=== PATIENT | male | born 1965 | race Caucasian/White ===

== ENCOUNTER 2022-06-21 11:21 | Emergency (ER) | payer OTHER, SELFPAY ==
[2022-06-21 11:39] VITALS: BP 138/98; PULSE 73; RESP 16; TEMP 36.7; O2SAT 98
[2022-06-21 11:40] VITALS: BP 137/93; PULSE 67; RESP 18; TEMP 36.9; O2SAT 98
--- NOTE | 2022-06-21 11:41 | PC.NURSE ---
COVID PCR sent to lab
--- NOTE | 2022-06-21 11:44 | ED.NAVMDI ---
HPI - Nausea/Vomiting/Diarrhea General Chief complaint: Nausea/Vomiting/Diarrhea Stated complaint: abd cramping, nausea, vomitting, diarrhea Time Seen by Provider: 06/21/22 11:44 Source: patient Mode of arrival: ambulatory History of Present Illness HPI Narrative: 57-year-old male with no significant past medical history presents to the ER with a one-week history of -- nausea/vomiting. This has resolved over the past 2 3 days -- multiple episodes of large volume diarrhea. -- Questionable blood in his stool. The patient has not had any antibiotics in the recent past. Never had a colonoscopy. Patient does not have any fever or abdominal pain. MD elicited complaint: nausea, vomiting and diarrhea Pertinent past history: anorexia Onset (ago): week(s) ( Started 1 week ago) Description of diarrhea: blood and watery Associated nausea: Yes Associated abdominal pain: No Location of pain: none Associated symptoms: denies other symptoms Related Data Home Medications Medication Instructions Recorded Confirmed No Home Medications 06/21/22 06/21/22 Allergies Allergy/AdvReac Type Severity Reaction Status Date / Time No Known Allergies Allergy Verified 06/21/22 11:44 Review of Systems Review of Systems: All systems reviewed & are unremarkable except as noted in HPI and below Constitutional: Constitutional: Reports as per HPI and Reports no additional constitutional complaints Eyes: Eyes: Reports as per HPI and Reports no additional eye complaints ENT: Reports system reviewed and no additional complaints, except as documented and Reports as per HPI Cardiovascular: Cardiovascular: Reports as per HPI and Reports no additional cardiovascular complaints Respiratory: Respiratory: Reports as per HPI and Reports no additional respiratory complaints Gastrointestinal: Gastrointestinal: Reports as per HPI, Reports no additional gastrointestinal complaints, Reports diarrhea, Reports nausea and Reports vomiting Genitourinary: Genitourinary: Reports no additional male genitourinary complaints and Reports as per HPI Musculoskeletal: Musculoskeletal: Reports no additional musculoskeletal complaints and Reports as per HPI Integumentary/Breasts: Skin/Breast: Reports system reviewed and no additional complaints, except as docu and Reports as per HPI Neurologic: Reports system reviewed and no additional complaints, except as documented and Reports as per HPI Psychiatric: Psychiatric: Reports no additional psychiatric complaints and Reports as per HPI Endocrine: Endocrine: Reports no additional endocrine complaints and Reports as per HPI Hematologic/Lymphatic: Hematologic/Lymphatic: Reports no additional hematologic/lymphatic complaints and Reports as per HPI Allergic/Immunologic: Allergic/Immunologic: Reports no additional allergic/immunologic complaints and Reports as per HPI Exam Const: General: healthy appearing and no acute distress Orientation/consciousness: patient oriented x3 Limitations: no limitations HENMT: Head: normal to inspection Ears: external ears normal Face and sinus: normal facial exam Mouth: Yes Normal oral and palatal mucosa present Throat: posterior oropharynx normal Eyes: Conjunctivae: conjunctivae normal Cornea: corneas normal Pupils: Equal, round and reactive pupils present EOM: EOMs intact bilaterally Direct Ophthalmoscopy: no photophobia Neck: Neck: normal visual inspection, no lymphadenopathy and no meningeal signs Chest: Chest palpation & inspection: normal inspection of the chest Resp: Effort & Inspection: normal respiratory effort Auscultation: clear to auscultation bilaterally Cardio: Rate: regular rate Rhythm: regular rhythm GI: GI Palp: Yes Soft to palpation Other: no tenderness/ rigidity /rebound : General: Yes no CVA tenderness Back/Spine/Pelvis: Back: no CVA tenderness Skin: General skin exam: normal color Rashes: no rashes Wounds: no wounds Neuro: General: patien
[2022-06-21 12:00] LABS: Basophils Absolute Auto 0.01 K/mm3 (0.00-0.10); Basophils Percent Auto 0.1 % (0.0-1.0); Eosinophils Absolute Auto 0.11 K/mm3 (0.02-0.50); Eosinophils Percent Auto 1.5 % (1.0-6.0); Hematocrit 38.8 % (40.0-54.0); Hemoglobin 13.4 g/dL (14.0-18.0); Immature Granulocyte Absolute 0.03 K/mm3 (0.00-0.00); Immature Granulocyte Percent A 0.4 % (0.0-0.0); Lymphocytes Absolute Auto 1.52 K/mm3 (1.10-4.50); Lymphocytes Percent Auto 20.9 % (18.0-42.0); Mean Corpuscular HGB Conc 34.5 g/dL (32.0-36.0); Mean Corpuscular Hemoglobin 30.5 pg (27.0-31.0); Mean Corpuscular Volume 88.4 fL (78.0-102.0); Mean Platelet Volume 9.3 fl (8.7-11.0); Monocytes Absolute Auto 0.95 K/mm3 (0.10-0.90); Monocytes Percent Auto 13.1 % (2.0-11.0); Neutrophils Absolute Auto 4.6 K/mm3 (1.7-7.2); Platelet Count Result 322 K/mm3 (150-420); Red Blood Count 4.39 M/mm3 (4.70-6.10); Red Cell Distribution Width 11.9 % (11.6-14.4); White Blood Count 7.3 K/mm3 (4.8-10.8)
[2022-06-21 12:01] LABS: Appearance Urine Clear (Clear); Bilirubin Urine 1+ (Negative); Color Urine Dark Yellow (Yellow); Glucose Urine UA Negative (Negative); Ketones Urine Trace (Negative); Leukocyte Esterase Ur Negative (Negative); Nitrate Urine Negative (Negative); Protein Urine Trace (Negative); Specific Grav Ur >= 1.030 (1.010-1.020); Urobilinogen Urine 0.2 mg/dL (0.2-1.0)
[2022-06-21 12:07] LABS: Add Urine Microscopic? YES; Bacteria Urine Trace /hpf; Blood Urine Trace (Negative); Mucus Urine Few /lpf; RBC Urine 0-2 /hpf (0-2); Squamous Epithelial Cell Urine Occasional /hpf (Few); WBC Urine 0-3 /hpf (0-3)
[2022-06-21 12:19] LABS: Alanine Aminotransferase 24 U/L (16-63); Albumin Level 3.2 g/dL (3.4-5.0); Alkaline Phosphatase 55 U/L (46-116); Anion Gap 12 mmol/L (8-16); Aspartate Amino Transferase 15 U/L (15-37); Bilirubin,Total 0.9 mg/dL (0.00-1.00); Blood Urea Nitrogen 13 mg/dL (7-18); Calcium 8.7 mg/dL (8.5-10.1); Carbon Dioxide 24 mmol/L (21-32); Chloride 103 mmol/L (98-108); Estimated Glomerular Filt Rate 59; Glucose 115 mg/dL (70-99); Lactic Acid Reflex 0.7 mmol/L (0.4-2.0); Lipase 65 U/L (73-393); Osmolality Calculated 289 mOsm/kg (285-295); Potassium 3.9 mmol/L (3.5-5.1); Sodium 139 mmol/L (136-145); Total Protein 6.9 g/dL (6.4-8.2); Troponin I 6.3 ng/L (0.00-60.4)
[2022-06-21 12:33] LABS: Influenza A QL RT-PCR Negative (Negative); Influenza B QL RT-PCR Negative (Negative); SARS-CoV-2 RNA PCR Negative (Negative)
[2022-06-21 12:55] VITALS: BP 117/89; PULSE 68; RESP 17; TEMP 36.7; O2SAT 97
== END 2022-06-21 13:01 | disposition home or self-care (01) ==
PROVIDERS: Emergency Provider Internal Medicine Critical Care Medicine
DX: K52.9 Noninfective gastroenteritis and colitis, unspecified (principal); E86.0 Dehydration; Z20.822 Contact with and (suspected) exposure to COVID-19
CPT/HCPCS: 36415; 80053; 81001; 83605; 83690; 84484; 85025; 87502; 99284; C9803; U0003; U0005

== ENCOUNTER 2022-08-01 11:41 | Outpatient (CLI) | payer OTHER, SELFPAY ==
[2022-08-01 12:05] LABS: Basophils Percent Auto 0.2 % (0.2-1.2); Eosinophils Absolute Auto 0.2 K/mm3 (0-0.3); Eosinophils Percent Auto 2.7 % (0-4.4); Hematocrit 40.4 % (42.0-52.0); Hemoglobin 13.6 g/dL (14.0-18.0); Immature Granulocyte Absolute 0.03 K/mm3 (0.00-0.031); Immature Granulocyte Percent A 0.4 % (0-0.5); Lymphocytes Absolute Auto 2.76 K/mm3 (0.9-3.2); Lymphocytes Percent Auto 33.7 % (18.3-44.2); Mean Corpuscular HGB Conc 33.7 g/dl (32-36); Mean Corpuscular Hemoglobin 29.8 pg (26-34); Mean Corpuscular Volume 88.4 fl (80-100); Mean Platelet Volume 9.3 fl (7.4-10.4); Monocytes Absolute Auto 0.7 K/mm3 (0.1-0.6); Monocytes Percent Auto 8.1 % (2.6-8.5); Neutrophils Absolute Auto 4.5 K/mm3 (1.3-6.7); Neutrophils Percent Auto 54.9 % (45.5-73.1); Platelet Count Result 357 k/mm3 (150-375); Red Blood Count 4.57 M/mm3 (4.6-6.20); Red Cell Distribution Width 12.6 % (11.5-14.5); White Blood Count 8.2 K/mm3 (4.5-10.0)
[2022-08-01 12:31] LABS: Alanine Aminotransferase 33 U/L (6-50); Albumin Level 4.5 g/dL (3.5-5.1); Alkaline Phosphatase 66 U/L (38-126); Anion Gap 10 mmol/L (8-16); Aspartate Amino Transferase 35 U/L (17-59); Blood Urea Nitrogen 13 mg/dL (9-20); Calcium 9.4 mg/dL (8.4-10.2); Carbon Dioxide 27 mmol/L (22-30); Chloride 102 mmol/L (98-107); Cholesterol 181 mg/dL (0-200); Estimated Glomerular Filt Rate > 60; Glucose 103 mg/dL (65-110); HDL Direct 34 mg/dL; Potassium 4.6 mmol/L (3.4-5.0); Sodium 139 mmol/L (137-145); Triglycerides 226 mg/dL (<150)
[2022-08-01 12:42] LABS: LDL Cholesterol Direct 79 mg/dL
[2022-08-01 13:02] LABS: Prostate Specific Antigen 7.1 ng/mL (< OR = 4.0)
== END 2022-08-01 11:42 | disposition home or self-care (01) ==
LOC: ANHLAB 11:42
PROVIDERS: PCP Emergency Medicine; Visit Provider Emergency Medicine
DX: Z00.00 Encounter for general adult medical examination without abnormal findings (principal); Z12.5 Encounter for screening for malignant neoplasm of prostate
CPT/HCPCS: 36415; 80053; 80061; 84153; 85025; G0103

== ENCOUNTER 2022-08-07 15:50 | Outpatient (CLI) | payer OTHER, SELFPAY ==
[2022-08-12 22:13] LABS: PSA, Free 0.71 ng/mL; PSA, Total 6.2 ng/mL (<=4.0); Percent Free Prostate Spec Ag 11 % (>25)
== END 2022-08-07 15:51 | disposition home or self-care (01) ==
LOC: ANHLAB 15:54
PROVIDERS: PCP Emergency Medicine; Visit Provider Emergency Medicine
DX: R97.20 Elevated prostate specific antigen [PSA] (principal)
CPT/HCPCS: 36415; 84153; 84154

== ENCOUNTER 2022-10-20 07:32 | Day surgery (SDC) | payer OTHER, SELFPAY ==
[2022-07-30 11:40] VITALS: BMI 26.2
[2022-10-13 10:36] VITALS: BMI 26.9
--- NOTE | 2022-10-17 14:50 | PM.HPGS ---
History of Present Illness History of Present Illness Consent: Risks, benefits, and alternatives have been discussed and questions answered. Patient agrees to proceed with procedure. Chief complaint: Gerd, Diarrhea, Anemia, Hematemesis Narrative: Davide Gunter is a 57 year old male Who came down with severe nausea vomiting, diarrhea, and abdominal pain in June. There was also fever initially. His symptoms have gradually improved. He is no longer vomiting. He is mildly anemic with hemoglobin 13.6. He is due for colon cancer screening. Review of Systems Review of Systems: All systems reviewed & are unremarkable except as noted in HPI and below PMFSH Social History Social History Social History: Caffeine-coffee/tea Smoking status: Former smoker Second hand tobacco smoke exposure: No Alcohol intake: current Alcohol use details: social beer every 3-4 day Substance use: never Living arrangements: with family Gender identity (if verbalized by the patient): Male Spiritual care concerns: No Meds Home Medications and Allergies Home Medications Medication Instructions Recorded Confirmed Type sildenafil 50 mg tablet (Viagra) 50 mg PO DAILY PRN sexual activity 08/14/22 10/20/22 Rx #6 tabs Allergies Allergy/AdvReac Type Severity Reaction Status Date / Time No Known Allergies Allergy Verified 10/20/22 08:42 Exam Const: General: alert Orientation/consciousness: patient oriented x3 Resp: Auscultation: clear to auscultation bilaterally Cardio: Rhythm: regular rhythm GI: GI Palp: Yes Soft to palpation and No Tenderness to palpation present (GI) Neuro: General: patient oriented x3 Assessment and Plan Assessment and plan (1) Nausea and vomiting: Code(s): R11.2 - Nausea with vomiting, unspecified Status: Acute Assessment and Plan: EGD with possible biopsy or dilatation or cautery. (2) Colon cancer screening: Code(s): Z12.11 - Encounter for screening for malignant neoplasm of colon Status: Acute Assessment and Plan: Colonoscopy with possible biopsy or polypectomy or cautery or injection of substances.
--- NOTE | 2022-10-20 07:02 | WPDANESEPPF ---
Anes - Initial Pre Proc Eval Procedure: Operation Date: 10/20/22 10:00 Proposed Procedures p Esophagogastroduodenoscopy - Yasir Turk MD s Diagnostic Colonoscopy - Yasir Turk MD Date/Time: 10/20/22 07:02 Surgeon: Yasir Turk MD Pre Op Diagnosis: Gerd, Diarrhea, Anemia, Hematemesis Patient Data Age: 57 Gender: M Height: 1.85 m Weight: 92.5 kg Allergies Allergy/AdvReac Type Severity Reaction Status Date / Time No Known Allergies Allergy Verified 10/20/22 08:42 Home Medications Medication Instructions Recorded Confirmed Type sildenafil 50 mg tablet (Viagra) 50 mg PO DAILY PRN sexual activity 08/14/22 10/20/22 Rx #6 tabs pantoprazole 40 mg tablet,delayed 40 mg PO QAM #30 tabs 10/20/22 Rx release Patient hx anesthesia problems: none Family hx anesthesia problems: none Results Review: All pre-operative results and documents have been reviewed as part of the pre-operative evaluation. [facility] Social History Social History Social History: Caffeine-coffee/tea Smoking status: Former smoker Second hand tobacco smoke exposure: No Alcohol intake: current Alcohol use details: social beer every 3-4 day Substance use: never Living arrangements: with family Gender identity (if verbalized by the patient): Male Spiritual care concerns: No Anes - Eval Final PreProcedure Day of Procedure 10/20/22 07:02 Patient weight: overweight Heart: regular rate and rhythm Lungs: clear to auscultation Airway: Mallampati scale class II Neurological: alert and oriented Last oral intake: >/= 8 hours ASA classification: I Emergent: no Anesthetic plan: proceed Anesthesia type and monitoring: general GIVS and standard monitoring Results Review: All pre-operative results and documents have been reviewed as part of the pre-operative evaluation. Informed Consent: The patient's anesthetic plan and its attendant risks and benefits were discussed with the patient/family/POA. Questions were solicited and answers provided to the satisfaction of the patient/family/POA.
[2022-10-20 08:40] VITALS: BP 113/93; PULSE 65; RESP 16; TEMP 36.6; O2SAT 98
[2022-10-20] MEDS: LACTATED RINGERS 1,000 ML 150 ML IV CONT (09:04)
[2022-10-20 10:08] VITALS: BP 95/74; PULSE 60; RESP 18; O2SAT 97
[2022-10-20 10:18] VITALS: BP 105/78; PULSE 59; RESP 18; O2SAT 98
[2022-10-20 10:28] VITALS: BP 108/77; PULSE 57; RESP 18; O2SAT 98
--- NOTE | 2022-10-20 11:40 | WPDANESPN ---
Anes - Prog Note Post-Op Date/Time: 10/20/22 11:40 Cardiovascular status: normal Respiratory status: normal Airway patency: baseline Mental status: baseline Post-Op hydration status: normal Vital Signs: Last Vital Signs Temp 36.6 C 10/20/22 08:40 Pulse 57 L 10/20/22 10:28 Resp 18 10/20/22 10:28 BP 108/77 10/20/22 10:28 Pulse Ox 98 10/20/22 10:28 O2 Del Method Room Air 10/20/22 10:28 Pain Score (VAS): 0 I/O: Intake & Output 10/19/22 10/20/22 10/20/22 23:59 07:59 15:59 Intake Total 500 Balance 500 Post-procedural complaints: none Patient Feedback: Patient satisfied with anesthetic care. Other Findings: Patient vital signs back to baseline. Patient denies nausea and vomiting. Patient's pain under control. Patient OK for discharge.
== END 2022-10-20 10:53 | disposition home or self-care (01) ==
PROVIDERS: Visit Provider Internal Medicine Gastroenterology
PROC: 0DJ08ZZ Inspection of Upper Intestinal Tract, Via Natural or Artificial Opening Endoscopic (ICD-10-PCS; CPT 43235; principal; 2022-10-20 10:00)
PROC: 0DJD8ZZ Inspection of Lower Intestinal Tract, Via Natural or Artificial Opening Endoscopic (ICD-10-PCS; CPT 45378; 2022-10-20 10:00)
DX: Z12.11 Encounter for screening for malignant neoplasm of colon (principal)
CPT/HCPCS: 45385; 43239

== ENCOUNTER 2022-10-20 08:00 | Outpatient (NON) | payer OTHER, SELFPAY | END 2022-10-20 08:01 | disposition home or self-care (01) | LOC: ANHLAB 10-21 07:57 | PROVIDERS: PCP Emergency Medicine; Visit Provider Internal Medicine Gastroenterology | DX: Z12.11 Encounter for screening for malignant neoplasm of colon (principal); K22.89 Other specified disease of esophagus; D12.5 Benign neoplasm of sigmoid colon | CPT/HCPCS: 88305; 88312 ==

== ENCOUNTER 2024-03-04 09:58 | Inpatient (IN) | payer OTHER, SELFPAY ==
[2024-03-04] VITALS (17 sets, daily range): BP systolic 107–131; BP diastolic 70–84; PULSE 65–89; RESP 12–24; TEMP 36.4; O2SAT 94–100
--- NOTE | ~2024-03-04 | CT_ITS ---
EXAMINATION: CT brain wo con DATE: 03/04/2024 10:29 INDICATION: Fall and seizure TECHNIQUE: Computed tomography (CT) of the head was performed without intravenous contrast. Sagittal and coronal reconstructions were performed. The mA was adjusted according to patient size. Iterative reconstruction technique was employed. The dose-length product was 1135.00 mGy-cm. COMPARISON: None FINDINGS: No fracture. 1.9 x 1.8 x 1.4 cm hypodense lesion with some surrounding likely vasogenic edema at the anterior inferior right frontal lobe at the floor of the anterior cranial fossa. Additional vasogenic edema surrounding a more subtle 2.3 x 1.7 x 1.7 cm peripherally higher attenuation centrally low att enuation lesion in the posterior right frontal lobe along the cephalad margin of the sylvian fissure. There are at least 4 additional subcentimeter hypoattenuation lesions in the right frontal, left tem poral and left parietal lobes. No acute infarction or abnormal extra axial fluid collection. Ventricl es are normal and symmetric. No mass/mass effect. The orbits, paranasal sinuses and mastoid air cells are normal. IMPRESSION: 1. Vasogenic edema associated with multiple brain lesions with distribution and appearance favoring m etastatic disease or septic emboli in the appropriate clinical setting over scattered foci of intrapa renchymal hemorrhage. Recommend contrast-enhanced MRI or CT for further evaluation. Dr. Hagan disc ussed these findings with Dr. Zamora at 10:42 AM. Reviewed, dictated and finalized at location A. IMPRESSION: 1. Vasogenic edema associated with multiple brain lesions with distribution and appearance favoring metastatic disease or septic emboli in the appropriate cli nical setting over scattered foci of intraparenchymal hemorrhage. Recommend con trast-enhanced MRI or CT for further evaluation. Dr. Hagan discussed these f indings with Dr. Zamora at 10:42 AM.
--- NOTE | ~2024-03-04 | CT_ITS ---
EXAMINATION: CT cervical spine wo con DATE: 03/04/2024 10:29 INDICATION: Seizure and fall with head injury TECHNIQUE: Computed tomography (CT) of the cervical spine was performed without intravenous contrast. Automated exposure control and iterative reconstruction technique were employed. The dose-length pro duct was 541.57 mGy-cm. COMPARISON: None FINDINGS: Alignment is normal. Vertebral body heights are normal. No fracture. Disc heights are normal. There a re disc bulges resulting in mild central canal stenosis at C3-C4 and C5-C6. Moderate uncovertebral os teoarthritis on the left at C3-C4 with mild osteoarthritis at the remaining cervical uncovertebral helena ints. There is multilevel moderate to severe bilateral cervical facet osteoarthritis. This contribute s to multilevel bilateral mild neural foraminal stenosis. There multiple subcentimeter pulmonary nodu les with random distribution in the visualized upper lungs consistent with metastatic disease. Also s uspicious for metastatic disease are a few enlarged right paratracheal lymph nodes the largest measur ing 1.5 x 1.5 cm. Cervical soft tissues are unremarkable. IMPRESSION: 1. Mild cervical spondylosis with no acute osseous abnormality. 2. Multiple subcentimeter pulmonary nodules in the visualized upper lungs along with right paratrache al lymphadenopathy suspicious for metastatic disease. Reviewed, dictated and finalized at location A. IMPRESSION: 1. Mild cervical spondylosis with no acute osseous abnormality. 2. Multiple subcentimeter pulmonary nodules in the visualized upper lungs along with right paratracheal lymphadenopathy suspicious for metastatic disease.
--- NOTE | ~2024-03-04 | CT_ITS ---
EXAMINATION: CT thoracic lumbar wo con DATE: 03/04/2024 12:17 INDICATION: meta . TECHNIQUE: Computed tomography (CT) of the thoracic and lumbar spine was performed without intravenou s contrast. The dose-length product was 2156.89 mGy-cm. COMPARISON: None FINDINGS: THORACIC SPINE: 12 rib-bearing thoracic vertebral bodies. Multiple lytic lesions involving the T1, T5, T9 and T10 [place] tebral bodies. Severe burst fracture at T5, with up to 9 mm retropulsion/posterior tumor extension ca using moderate central canal stenosis. Mild burst fracture at T9, with 2 mm retropulsion. Mild anteri or wedge deformity at T12, presumably chronic or physiologic. Vertebral body alignment intact. Remain ing vertebral body heights preserved. Mild multilevel degenerative disc disease. No traumatic malalig nment or fracture. Innumerable pulmonary nodules. More confluent subsegmental dependent consolidation bilaterally. Small hiatal hernia. Mediastinal and bilateral lymphadenopathy.. LUMBAR SPINE: 5 nonrib-bearing lumbar-type vertebral bodies. Rudimentary disc at S1-2. Pedicles intact. Normal vert ebral body alignment. Mild anterior wedge deformity at L1 and L4, presumably chronic or physiologic. Mild multilevel disc degenerative disc disease. Mild lower lumbar facet sclerosis arthropathy. Lytic lesion in the spinous processes of L1 L5 and S1. Lytic lesion in the left posterior 12th rib IMPRESSION: Bilateral dependent atelectasis/consolidation. Pulmonary, mediastinal/hilar, and axial spine metastatic disease. Severe burst fracture at T5 with 9 mm posterior retropulsion/tumor extension causing moderate central canal stenosis. Mild burst fracture at T9, with minimal 2 mm retropulsion of osseous fragments. Reviewed, dictated and finalized at location K. IMPRESSION: Bilateral dependent atelectasis/consolidation. Pulmonary, mediastinal/hilar, and axial spine metastatic disease. Severe burst fracture at T5 with 9 mm posterior retropulsion/tumor extension ca using moderate central canal stenosis. Mild burst fracture at T9, with minimal 2 mm retropulsion of osseous fragments.
--- NOTE | ~2024-03-04 | CT_ITS ---
EXAMINATION: CTA brain DATE: 03/04/2024 11:24 INDICATION: Seizure TECHNIQUE: Computed tomographic angiography (CTA) of the head was performed without and with 100 mL O mnipaque-350 intravenous contrast. Volume-rendered and maximum intensity projection 3D reconstruction s of the intracranial arteries were created by the technologist on a separate workstation. Automated exposure control and iterative reconstruction technique were employed. The dose-length product was mG y-cm. COMPARISON: None. FINDINGS: There is no hemodynamically significant stenosis in the vertebral, basilar and internal carotid arter ies. Vertebral arteries are codominant. There are no aneurysms identified. Both A1 and P1 segments a re patent. The left A1 segment is small with larger caliber patent anterior to indicating artery. Cer ebral arterial arborization appears symmetric. There are at least 12 peripherally enhancing lesions s cattered throughout the brain to the lab largest measuring 2.0 cm in the right parietal lobe. There i s an additional 2.0 cm lesion along the anteroinferior right frontal lobe which is slightly hyperinte nse to the surrounding brain but with similar density as on the prior noncontrast CT and this could r epresent either an additional metastatic lesion, small region of intraparenchymal hemorrhage or combi nation thereof. IMPRESSION: 1. At least 11 peripheral enhancing lesions scattered throughout the brain consistent with metastatic disease. 2. 2.0 cm lesion at the anteroinferior right frontal lobe but without definitive enhancement coronal for either additional metastatic lesion, intraparenchymal hemorrhage or combination thereof. 3. No aneurysm or hemodynamically significant stenosis. Reviewed, dictated and finalized at location A. IMPRESSION: 1. At least 11 peripheral enhancing lesions scattered throughout the brain cons istent with metastatic disease. 2. 2.0 cm lesion at the anteroinferior right frontal lobe but without definitiv e enhancement coronal for either additional metastatic lesion, intraparenchymal hemorrhage or combination thereof. 3. No aneurysm or hemodynamically significant stenosis.
--- NOTE | 2024-03-04 10:07 | ECG_ITS ---
SEE SCANNED COPY FOR CONFIRMED REPORT MTDD
--- NOTE | 2024-03-04 10:15 | PC.NURSE ---
pt taken to CT, unable to obtain EKG
[2024-03-04] MEDS: levETIRAcetam 1000MG/NACL100ML 1,000 MG/100 ML BAG 400 MG IVPB (10:57)
[2024-03-04 10:59] LABS: Basophils Percent Auto 0.3 % (0.2-1.2); Eosinophils Percent Auto 0.3 % (0-4.4); Hematocrit 38.3 % (42.0-52.0); Hemoglobin 13.1 g/dL (14.0-18.0); Immature Granulocyte Absolute 0.13 K/mm3 (0.00-0.031); Immature Granulocyte Percent A 0.8 % (0-0.5); Lymphocytes Absolute Auto 0.71 K/mm3 (0.9-3.2); Lymphocytes Percent Auto 4.6 % (18.3-44.2); Mean Corpuscular HGB Conc 34.2 g/dl (32-36); Mean Corpuscular Volume 87.6 fl (80-100); Mean Platelet Volume 9.5 fl (7.4-10.4); Monocytes Absolute Auto 0.9 K/mm3 (0.1-0.6); Monocytes Percent Auto 5.5 % (2.6-8.5); Neutrophils Absolute Auto 13.8 K/mm3 (1.3-6.7); Neutrophils Percent Auto 88.5 % (45.5-73.1); Platelet Count Result 365 k/mm3 (150-375); Red Blood Count 4.37 M/mm3 (4.6-6.20); Red Cell Distribution Width 11.7 % (11.5-14.5); White Blood Count 15.6 K/mm3 (4.5-10.0)
[2024-03-04 11:06] LABS: Alanine Aminotransferase 19 U/L (6-50); Albumin Level 4.2 g/dL (3.5-5.1); Alkaline Phosphatase 86 U/L (38-126); Anion Gap 8 mmol/L (4-12); Aspartate Amino Transferase 36 U/L (17-59); Bilirubin,Total 1.2 mg/dL (0.2-1.3); Blood Urea Nitrogen 18 mg/dL (9-20); Calcium 9.4 mg/dL (8.4-10.2); Carbon Dioxide 21 mmol/L (22-30); Chloride 106 mmol/L (98-107); Estimated CRCL calculation 68 ml/min; Estimated Glomerular Filt Rate > 60; Glucose 210 mg/dL (65-110); Sodium 135 mmol/L (137-145)
[2024-03-04 11:10] LABS: Ethanol < 10 mg/dL (<10); INR 1.1; Prothrombin Time 14.5 Seconds (11.1-14.7)
[2024-03-04] MEDS: HYDROmorphone HCL INJ (*CRX) 1 MG/ML SYR IV PUSH (11:57)
[2024-03-04] MEDS: ONDANSETRON INJ 4 MG/2 ML VIAL IV PUSH (11:57)
--- NOTE | 2024-03-04 12:25 | PC.NURSE ---
pt declines straight cath for urine sample. provided pt a urinal and educated to use call light with any urge to urinate.
[2024-03-04] MEDS: dexAMETHasone SOD PHOS INJ 10 MG/ML 1 ML VIAL IV PUSH (12:55)
--- NOTE | 2024-03-04 13:04 | PC.NURSE ---
[facility] transfer center called @[phone] to get pt report and update. they state they will call back with further updates on admission and transfer
[2024-03-04] MEDS: HYDROmorphone HCL INJ (*CRX) 1 MG/ML SYR 0.5 MG IV PUSH ×4 (14:15→23:09)
--- NOTE | 2024-03-04 14:23 | ECG_ITS ---
SEE SCANNED COPY FOR CONFIRMED REPORT MTDD
[2024-03-04] MEDS: LORazepam INJ (*CRX) 2 MG/ML VIAL 0.5 MG IV PUSH (15:04)
--- NOTE | 2024-03-04 15:07 | ED.SEIZURE ---
HPI - Seizure General Chief Complaint: Seizure <Kain Zamora MD - Last Filed: 03/04/24 15:38> Stated Complaint: back pain s/p seizure <Kain Zamora MD - Last Filed: 03/04/24 15:38> Time Seen by Provider: 03/04/24 09:59 <Kain Zamora MD - Last Filed: 03/04/24 15:38> Source: EMS <Kain Zamora MD - Last Filed: 03/04/24 15:38> Mode of arrival: EMS <Kain Zamora MD - Last Filed: 03/04/24 15:38> Limitations: no limitations <Kain Zamora MD - Last Filed: 03/04/24 15:38> History of Present Illness HPI Narrative: 58-year-old with metastatic of disease the primary from lung and melanoma was brought in from home with complaints of having seizure. Patient states that he was laying on the couch fell off the couch after having a seizure. Upon arrival patient complains of head and back pain. No history of fever or chills. He is not on any anti epileptic medication. Patient's was bedside stated that his schedule for immunotherapy next week at [facility] She also stated that he has metastatic lesions in his thoracic lumbar and sacral vertebra <Kain Zamora MD - Last Filed: 03/04/24 15:38> MD complaint: seizure <Kain Zamora MD - Last Filed: 03/04/24 15:38> Onset (ago): minute(s) (30) <Kain Zamora MD - Last Filed: 03/04/24 15:38> Description of Episode: post-event confusion <Kain Zamora MD - Last Filed: 03/04/24 15:38> Witnessed: Yes - by Other (his ) <Kain Zamora MD - Last Filed: 03/04/24 15:38> Trauma: No <Kain Zamora MD - Last Filed: 03/04/24 15:38> Seizure History: No <Kain Zamora MD - Last Filed: 03/04/24 15:38> Place: home <Kain Zamora MD - Last Filed: 03/04/24 15:38> Possible Precipitating Event: other (Metastatic disease to the brain) <Kain Zamora MD - Last Filed: 03/04/24 15:38> Treatments prior to arrival: none <Kain Zamora MD - Last Filed: 03/04/24 15:38> Related Data Home Medications: Home Medications Medication Instructions Recorded Confirmed oxycodone 5 mg tablet 10 mg PO Q4H PRN Pain 03/05/24 03/05/24 <Kain Zamora MD - Last Filed: 03/04/24 15:38> Allergies/Adverse Reactions: Allergies Allergy/AdvReac Type Severity Reaction Status Date / Time No Known Allergies Allergy Verified 03/04/24 12:56 <Kain Zamora MD - Last Filed: 03/04/24 15:38> Review of Systems Review of Systems: All systems reviewed & are unremarkable except as noted in HPI and below <Kain Zamora MD - Last Filed: 03/04/24 15:38> Constitutional: Constitutional: Reports no additional constitutional complaints <Kain Zamora MD - Last Filed: 03/04/24 15:38> Eyes: Eyes: Reports no additional eye complaints <Kain Zamora MD - Last Filed: 03/04/24 15:38> ENT: Reports system reviewed and no additional complaints, except as documented <Kain Zamora MD - Last Filed: 03/04/24 15:38> Cardiovascular: Cardiovascular: Reports no additional cardiovascular complaints <Kain Zamora MD - Last Filed: 03/04/24 15:38> Respiratory: Respiratory: Reports no additional respiratory complaints <Kain Zamora MD - Last Filed: 03/04/24 15:38> Gastrointestinal: Gastrointestinal: Reports no additional gastrointestinal complaints <Kain Zamora MD - Last Filed: 03/04/24 15:38> Musculoskeletal: Musculoskeletal: Reports back pain <Kain Zamora MD - Last Filed: 03/04/24 15:38> Neurologic: Reports as per HPI <Kain Zamora MD - Last Filed: 03/04/24 15:38> Psychiatric: Psychiatric: Reports no additional psychiatric complaints <Kain Zamora MD - Last Filed: 03/04/24 15:38> PMFSH Social History Social History: Social History Social History: Caffeine-coffee/tea Smoking status: Never smoker Second hand tobacco smoke exposure: No Alcohol intake: never Alcohol use details: social bee
--- NOTE | 2024-03-04 17:51 | PC.NURSE ---
only prescription medication pt states they are prescribed is Oxycodone 20mg Q4 hours. no other prescriptions per pt and pt
--- NOTE | 2024-03-04 17:52 | PC.NURSE ---
ordered pt dinner meal tray @[phone]
[2024-03-04] MEDS: LIDOCAINE 5% PATCH 1 PATCH TRANSDERM (21:19)
--- NOTE | 2024-03-04 21:42 | PC.NURSE ---
Fuad from [facility] transfer center called @[phone] to get pt update but still does not have a bed assignment at this time
--- NOTE | 2024-03-04 22:57 | PC.NURSE ---
care and report given to RISHABH Keane. all questions answered
[2024-03-05] VITALS (46 sets, daily range): BP systolic 108–128; BP diastolic 65–83; PULSE 54–79; RESP 12–31; TEMP 36.1–36.8; O2SAT 87–100; BMI 26.0
[2024-03-05] MEDS: HYDROmorphone HCL INJ (*CRX) 1 MG/ML SYR 0.5 MG IV PUSH ×6 (02:04→20:46)
--- NOTE | 2024-03-05 07:31 | PC.NURSE ---
Addendum entered by Giuliana Shore 03/05/24 07:36: @[id number] Original Note: Called and spoke with transfer center. Patient remains on wait list with a few patients ahead of him, he could be waiting a few days.
--- NOTE | 2024-03-05 08:57 | ADMGEN ---
This patient, Davide Gunter, was admitted to IMU Room 207-01. Patient/family oriented to hospital policies and general routines including ID bracelet, bed and alarms, visiting hours, pain management, procedures, bathroom and other care routines, personal items, smoking policy, room service/diet, and visiting hours. Information on how to activate the Rapid Response Team has been discussed. Patient/Family are encouraged to report perceived risks to care and to ask questions if they do not understand what they are told or what they should do.
[2024-03-05] MEDS: levETIRAcetam 500 MG TABLET PO ×2 (10:26→20:38)
[2024-03-05] MEDS: dexAMETHasone SOD PHOS INJ 4 MG/ML VIAL IV PUSH ×2 (13:15→17:29)
--- NOTE | 2024-03-05 15:11 | PM.IMHP ---
H&P: HPI History of Present Illness Date/Time: 03/05/24 15:11 Chief Complaint: Seizure Narrative: 58-year-old male with metastatic melanoma brought in from home with complaint of having seizures. Patient stated that he was lying on the couch from a fell off after he had a seizure. He has no re-collection of the event. No fever chills not on any anti epileptic medication. He was scheduled to get immunotherapy next week at [facility]. He has noted metastatic lesion in his thoracic lumbar and sacral vertebra. Was given IV Keppra and CT head was performed. A head CT showed vasogenic edema associated with multiple brain lesions with distribution and appearance favoring metastatic disease or septic emboli in the appropriate clinical settings over scattered foci of intraparenchymal hemorrhage. Recommend contrast-enhanced MRI or CT for the further evaluation Cervical spine CT showed mild cervical spondylosis with no acute osseous abnormality. Multiple subcentimeter pulmonary nodules in the visualized upper lungs along with right paratracheal lymphadenopathy suspicious for metastatic disease CT brain angiogram showed at least 11 peripheral enhancing lesions scattered throughout the brain consistent with metastatic disease. 2 cm lesion at the anterior frontal lobe but without definitive enhancement coronal for either additional metastatic disease intraparenchymal a combination there of. No aneurysm or hemodynamically significant stenosis. Thoracolumbar CT was also performed which showed bilateral dependent atelectasis/consolidation pulmonary med mediastinal/hilar and axial spine metastatic disease severe burst fracture at T5 with 9 mm posterior retropulsion/tumor extension causing moderate central canal stenosis mild burst fracture at T9 with minimal 2 mm retropulsion of osseous fragments. Upon review of the medical records he recently had MRI thoracic spine done on 02/29/2024 which showed multiple hyperintense enhancing marrow replacing metastatic lesion in thoracic spine with pathologic compression deformity of T5 resulting in [id number] can all stenosis in left ventral cord deformity tumor extends from the left posterior lateral vertebral body an expanded pedicle into the epidural space on series 15, image 21. Additional questionable mild superior endplate pathology compression deformity of T9 without significant. T2 hyperintense enhancing focus involving the left lateral ermias cord at T10-T11 level suspicious for metastatic intramedullary deposit fever given the brain findings demyelination or inflammation/autoimmune/paraneoplastic reaction are differential. Right T10 posterior rib osseous metastasis multiple enhancing soft tissue nodules within the paraspinal musculature suspicious for soft tissue metastatic disease extensive pulmonary metastatic disease better demonstrated on prior PET CT several enlarged enhancing retrocrural lymph nodes. MRI brain 02/29/2024 showed multiple new enhancing intracranial metastatic lesion measured EL with a few leptomeningeal/pial deposits largest lesion is in the right superior temporal gyrus with moderate surrounding vasogenic edema several lesions has been associated susceptibility suspicious for intralesional hemorrhage. Osseous metastatic lesion involving the right mandibular condyle. Small focus of diffusion restriction in the right posterior mass sick [place] muscle belly off uncertain significance significance. No associated enhancement or T2 signal abnormality. Metastasis cannot be excluded. Infarct or ischemia within the muscle is another unusual clinical possibility. Head CT 02/23/2024 showed progression of disease as evidence by numerous new hypermetabolic pulmonary nodules lymphadenopathy subcutaneous and intramuscular lesions and widespread lytic osseous lesion involving the axial and proximal appendicular skeleton. New mild pathologic compression fracture of T5 with intracranial extension causing sever
[2024-03-05] MEDS: polyethylene glycoL 3350 17 GM POWD.PACK PO (20:45)
[2024-03-06] VITALS (17 sets, daily range): BP systolic 111–131; BP diastolic 65–88; PULSE 57–104; RESP 16–20; TEMP 36.2–36.6; O2SAT 91–97
[2024-03-06] MEDS: dexAMETHasone SOD PHOS INJ 4 MG/ML VIAL IV PUSH ×4 (00:54→18:51)
[2024-03-06 04:51] LABS: Basophils Percent Auto 0.1 % (0.2-1.2); Hemoglobin 12.4 g/dL (14.0-18.0); Immature Granulocyte Absolute 0.06 K/mm3 (0.00-0.031); Immature Granulocyte Percent A 0.5 % (0-0.5); Lymphocytes Absolute Auto 0.87 K/mm3 (0.9-3.2); Lymphocytes Percent Auto 6.7 % (18.3-44.2); Mean Corpuscular HGB Conc 32.6 g/dl (32-36); Mean Corpuscular Hemoglobin 29.4 pg (26-34); Monocytes Absolute Auto 0.5 K/mm3 (0.1-0.6); Monocytes Percent Auto 3.9 % (2.6-8.5); Neutrophils Absolute Auto 11.6 K/mm3 (1.3-6.7); Neutrophils Percent Auto 88.8 % (45.5-73.1); Platelet Count Result 358 k/mm3 (150-375); Red Blood Count 4.22 M/mm3 (4.6-6.20); Red Cell Distribution Width 11.9 % (11.5-14.5); White Blood Count 13.1 K/mm3 (4.5-10.0)
[2024-03-06 05:03] LABS: Alanine Aminotransferase 21 U/L (6-50); Albumin Level 4.2 g/dL (3.5-5.1); Alkaline Phosphatase 78 U/L (38-126); Anion Gap 8 mmol/L (4-12); Aspartate Amino Transferase 34 U/L (17-59); Blood Urea Nitrogen 18 mg/dL (9-20); Carbon Dioxide 26 mmol/L (22-30); Chloride 104 mmol/L (98-107); Estimated CRCL calculation 80 ml/min; Estimated Glomerular Filt Rate > 60; Glucose 139 mg/dL (65-110); Magnesium 2.7 mg/dL (1.6-2.3); Potassium 4.4 mmol/L (3.4-5.0); Sodium 138 mmol/L (137-145)
[2024-03-06] MEDS: HYDROmorphone HCL INJ (*CRX) 1 MG/ML SYR 0.5 MG IV PUSH ×4 (05:29→20:13)
[2024-03-06] MEDS: LORazepam INJ (*CRX) 2 MG/ML VIAL 1 MG IV PUSH (05:57)
[2024-03-06] MEDS: PANTOPRAZOLE SODIUM IV 40 MG VIAL IV PUSH (08:24)
[2024-03-06] MEDS: levETIRAcetam 500 MG TABLET PO ×2 (08:24→21:39)
[2024-03-06] MEDS: BISACODYL 10 MG SUPPOSITORY RECTAL (09:58)
--- NOTE | 2024-03-06 10:26 | PM.IMPN ---
Progress Note: A&P Assessment and Plan (1) Seizure: Code(s): R56.9 - Unspecified convulsions Status: Acute (2) Metastatic disease: Qualifiers: Area of secondary neoplastic involvement: unspecified site Qualified Code(s): C79.9 - Secondary malignant neoplasm of unspecified site Code(s): C79.9 - Secondary malignant neoplasm of unspecified site Status: Acute Plan 58-year-old male with metastatic melanoma brought in from home with complaint of having seizures. Patient stated that he was lying on the couch from a fell off after he had a seizure. He has no re-collection of the event. No fever chills not on any anti epileptic medication. He was scheduled to get immunotherapy next week at [facility]. He has noted metastatic lesion in his thoracic lumbar and sacral vertebra. Was given IV Keppra and CT head was performed. A head CT showed vasogenic edema associated with multiple brain lesions with distribution and appearance favoring metastatic disease or septic emboli in the appropriate clinical settings over scattered foci of intraparenchymal hemorrhage. Recommend contrast-enhanced MRI or CT for the further evaluation Cervical spine CT showed mild cervical spondylosis with no acute osseous abnormality. Multiple subcentimeter pulmonary nodules in the visualized upper lungs along with right paratracheal lymphadenopathy suspicious for metastatic disease CT brain angiogram showed at least 11 peripheral enhancing lesions scattered throughout the brain consistent with metastatic disease. 2 cm lesion at the anterior frontal lobe but without definitive enhancement coronal for either additional metastatic disease intraparenchymal a combination there of. No aneurysm or hemodynamically significant stenosis. Thoracolumbar CT was also performed which showed bilateral dependent atelectasis/consolidation pulmonary med mediastinal/hilar and axial spine metastatic disease severe burst fracture at T5 with 9 mm posterior retropulsion/tumor extension causing moderate central canal stenosis mild burst fracture at T9 with minimal 2 mm retropulsion of osseous fragments. He remains seizure-free. His postictal confusion seems to be improving. Will continue on Keppra as ordered continue seizure precautions. Awaiting bed placement at [facility] for further treatment. Upon review of the medical records he recently had MRI thoracic spine done on 02/29/2024 which showed multiple hyperintense enhancing marrow replacing metastatic lesion in thoracic spine with pathologic compression deformity of T5 resulting in [id number] can all stenosis in left ventral cord deformity tumor extends from the left posterior lateral vertebral body an expanded pedicle into the epidural space on series 15, image 21. Additional questionable mild superior endplate pathology compression deformity of T9 without significant. T2 hyperintense enhancing focus involving the left lateral ermias cord at T10-T11 level suspicious for metastatic intramedullary deposit fever given the brain findings demyelination or inflammation/autoimmune/paraneoplastic reaction are differential. Right T10 posterior rib osseous metastasis multiple enhancing soft tissue nodules within the paraspinal musculature suspicious for soft tissue metastatic disease extensive pulmonary metastatic disease better demonstrated on prior PET CT several enlarged enhancing retrocrural lymph nodes. MRI brain 02/29/2024 showed multiple new enhancing intracranial metastatic lesion measured EL with a few leptomeningeal/pial deposits largest lesion is in the right superior temporal gyrus with moderate surrounding vasogenic edema several lesions has been associated susceptibility suspicious for intralesional hemorrhage. Osseous metastatic lesion involving the right mandibular condyle. Small focus of diffusion restriction in the right posterior mass sick [place] muscle belly off uncertain significance sig
--- NOTE | 2024-03-06 11:42 | PCCCNOTE ---
On 03/06/24, the student, Opal Domínguez, provided care and completed [facility] documentation on this patient. I have reviewed the student's documentation and agree with the findings.
[2024-03-06] MEDS: oxyCODONE HCL (*CRX) 5 MG TAB IR 10 MG PO ×2 (12:15→21:38)
--- NOTE | 2024-03-06 15:36 | WPDNEURCNPN ---
Assessment and Plan Assessment and plan (1) Seizure: Code(s): R56.9 - Unspecified convulsions Status: Acute (2) Metastatic disease: Qualifiers: Area of secondary neoplastic involvement: unspecified site Qualified Code(s): C79.9 - Secondary malignant neoplasm of unspecified site Code(s): C79.9 - Secondary malignant neoplasm of unspecified site Status: Acute Plan 1. Stage IIIC melanoma on historical basis with significant metastatic disease including bones and [employer]. 2. Seizures most likely secondary to the metastatic disease has been started on the steroid plus Keppra 3. Planning to be started on immunotherapy as [facility] as planned. Be discussed with the patient as well as no changes made in the treatment at this stage. Consult date: 03/06/24 HPI: Davide Gunter is a 58 year old male admitted to the hospital through the emergency room with the complaints of seizure in addition to the ongoing diagnosis of metastatic disease with primary lung and melanoma. Reportedly he was laying on the couch fell off the couch after having a seizure, upon arrival he was complaining of pain in the head and the back of the head he was not noted to have any febrile status and he was not any anti seizure medication his who happened to be with him reported that he is scheduled for the immunotherapy next week at the [facility] for the metastatic lesions in his thoracic lumbar and sacral vertebra, is taking only oxycodone 5mg 2 of them every 4hours p.r.n., he is not allergic to any medication, he has never been alcohol intake, drinks socially beer every 3 or 4 days, never a substance user, and initial exam in the emergency room revealed him to be confused no acute distress with no focal neurological deficit, vital signs were normal, CBC was with low BC 15.6, electrolytes with blood sugar of 210 and sodium 135, otherwise routine lab normal, CT scan of the head documented vasogenic edema with multiple brain lesions favoring metastatic disease or septic emboli in the appropriate clinical setting. CT brain angiography documented at least 11 peripheral enhancing lesion is scattered throughout the brain consistent with the metastatic disease with 2.0cm lesion at the merari inferior right frontal lobe without definitive enhancement but no aneurysm or hemodynamically significant stenosis, thoracic and lumbar CT scan with bilateral dependent atelectasis consolidation, pulmonary mediastinal hilar and axial spine metastatic disease, severe burst fracture at T5 with 9mm posterior retropulsion /tumor extension moderate central canal stenosis, and mild burst fracture at T9 with minimal 2mm retropulsion of 0 CS fragments Review of Systems Review of Systems: All systems reviewed & are unremarkable except as noted in HPI and below PMFSH Family History Family History (Updated 03/05/24 @ 10:37 by Katina Chavez, RN) Mother Dementia Uterine cancer Father Dementia Basal cell carcinoma Sibling Basal cell carcinoma Social History Social History Social History: Caffeine-coffee/tea Smoking status: Never smoker Second hand tobacco smoke exposure: No Alcohol intake: never Alcohol use details: social beer every 3-4 day Substance use: never Do You Feel Safe in your Home?: Yes Lack of Transportation: No Lack of Food: Never True Current Housing: I Have Housing Concerned About Future Housing: No Difficulty Paying Gas/Electric Bills: No Difficulty Paying for Meds: No Currently Unemployed: No Education: High School Diploma/GED Difficulty w/ Childcare or Family Care: No Living arrangements: with family Occupation/Education: occupation Gender identity (if verbalized by the patient): Male Spiritual care concerns: No Meds Home Medications and Allergies Home Medications Medication Instructions Recorded Confirmed Type oxycodone 5
--- NOTE | 2024-03-06 21:17 | PC.NURSE ---
[facility] transfer center called for pt update. No beds available at this time.
[2024-03-07] VITALS (12 sets, daily range): BP systolic 110–124; BP diastolic 64–72; PULSE 51–75; RESP 16–21; TEMP 36.4–36.9; O2SAT 92–97
[2024-03-07] MEDS: dexAMETHasone SOD PHOS INJ 4 MG/ML VIAL IV PUSH ×4 (00:10→17:49)
[2024-03-07] MEDS: HYDROmorphone HCL INJ (*CRX) 1 MG/ML SYR 0.5 MG IV PUSH (00:16)
[2024-03-07] MEDS: LORazepam INJ (*CRX) 2 MG/ML VIAL 0.5 MG IV PUSH ×2 (07:02→17:49)
[2024-03-07] MEDS: oxyCODONE HCL (*CRX) 5 MG TAB IR 10 MG PO ×2 (08:55→15:47)
[2024-03-07] MEDS: levETIRAcetam 500 MG TABLET PO (08:56)
[2024-03-07] MEDS: PANTOPRAZOLE SODIUM IV 40 MG VIAL IV PUSH (08:56)
[2024-03-07] MEDS: polyethylene glycoL 3350 17 GM POWD.PACK PO (08:56)
--- NOTE | 2024-03-07 10:00 | WPDNEUROPN ---
Progress Note: A&P Assessment and Plan (1) Seizure: Code(s): R56.9 - Unspecified convulsions Status: Acute Assessment and Plan: Stable with current medications. He is on Keppra 500 mg twice a day. (2) Melanoma: Code(s): C43.9 - Malignant melanoma of skin, unspecified Status: Acute Assessment and Plan: Known to have melanoma for last 2 years (3) Metastatic disease: Qualifiers: Area of secondary neoplastic involvement: unspecified site Qualified Code(s): C79.9 - Secondary malignant neoplasm of unspecified site Code(s): C79.9 - Secondary malignant neoplasm of unspecified site Status: Acute Assessment and Plan: Patient was found to have a [address] scan of the brain. Plan Of suggest increase the dose of Keppra 750 mg twice a day. He has awaiting transfer to [facility] he told me he most likely radiation and immunotherapy. I have encouraged to continue follow-up with the oncology team. They should continue the dexamethasone. Subjective Date/time seen: 03/07/24 10:00 Interval history: Patient presented this seizures. He has a history of melanoma that he has known for almost 2 years previous had evidence of metastasis and he has been treated today at [facility]. She has had a surgery on the left lower chest or upper abdomen area details of which are not available to me. He has not had any seizures since he was seen initially at this hospital. He was seen by Dr. Bone. CT scan of brain shows 11 metastasis. He is also suspicion of metastasis elsewhere is awaiting a bed at [facility] for transfer. He is currently on Keppra. Review of Systems Review of Systems: Able to ambulate. Denies any bladder or bowel problems. Exam Narrative: Mental status within normal limits. Aphasia dysarthria. Cranial single distal intact. Motor system normal power and tone in both upper and lower limbs. Deep tendon reflexes were at least 2 0 for the lower limbs and 1/4 in the upper limb. Objective Data Vital Signs Vital Signs: Vital Signs - 24 hr 03/06/24 12:00 03/06/24 12:00 03/06/24 12:00 Temperature 36.4 C Pulse Rate 99 104 H Respiratory Rate 18 Blood Pressure 127/88 Pulse Oximetry 96 Oxygen Delivery Room Air Oxygen Flow Rate 03/06/24 14:00 03/06/24 15:49 03/06/24 16:00 Temperature 36.6 C Pulse Rate 93 88 Respiratory Rate 16 Blood Pressure 114/73 Pulse Oximetry 94 Oxygen Delivery Room Air Oxygen Flow Rate 03/06/24 16:00 03/06/24 18:00 03/06/24 20:23 Temperature 36.4 C Pulse Rate 80 61 69 Respiratory Rate 18 Blood Pressure 131/77 Pulse Oximetry 97 Oxygen Delivery Oxygen Flow Rate 03/06/24 20:00 03/06/24 20:00 03/06/24 22:00 Temperature Pulse Rate 81 68 Respiratory Rate Blood Pressure Pulse Oximetry Oxygen Delivery Room Air Oxygen Flow Rate 03/06/24 23:51 03/07/24 00:00 03/07/24 00:00 Temperature 36.2 C L Pulse Rate 65 63 Respiratory Rate 20 Blood Pressure 111/65 Pulse Oximetry 93 Oxygen Delivery Room Air Oxygen Flow Rate 03/07/24 02:00 03/07/24 04:10 03/07/24 04:00 Temperature 36.5 C Pulse Rate 62 54 L 53 L Respiratory Rate 20 Blood Pressure 110/67 Pulse Oximetry 96 Oxygen Delivery Oxygen Flow Rate 03/07/24 04:00 03/07/24 06:00 03/07/24 07:24 Temperature 36.9 C Pulse Rate 54 L 60 Respiratory Rate 17 Blood Pressure 110/72 Pulse Oximetry 97 95 Oxygen Delivery Nasal Cannula Oxygen Flow Rate 2 03/07/24 08:01 03/07/24 08:45 03/07/24 08:00 Temperature Pulse Rate 75 68 Respiratory Rate Blood Pressure Pulse Oximetry 92 94 Oxygen Delivery Room Air Nasal Cannula Oxygen Flow Rate 2 Intake/Output Intake/Output: Intake & Output 03/04/24 03/05/24 03/06/24 03/07/24 23:59 23:59 23:59 23:59 Intake Total 551 770 0580 790 Balance 100 740 1
--- NOTE | 2024-03-07 14:41 | PC.NURSE ---
This patient, Davide Gunter, was transferred to [252 ] on 03/07/24 at 1332. Personal belongings sent with patient. Appropriate documentation sent with patient.
--- NOTE | 2024-03-07 14:52 | PC.NURSE ---
This patient, Davide Gunter, was received from [[facility] ] on 03/07/24 at 13:30. Patient/family oriented to unit policies and routines
--- NOTE | 2024-03-07 16:03 | PM.IMPN ---
Progress Note: A&P Assessment and Plan (1) Seizure: Code(s): R56.9 - Unspecified convulsions Status: Acute (2) Metastatic disease: Qualifiers: Area of secondary neoplastic involvement: unspecified site Qualified Code(s): C79.9 - Secondary malignant neoplasm of unspecified site Code(s): C79.9 - Secondary malignant neoplasm of unspecified site Status: Acute Plan 58-year-old male with metastatic melanoma brought in from home with complaint of having seizures. Patient stated that he was lying on the couch from a fell off after he had a seizure. He has no re-collection of the event. No fever chills not on any anti epileptic medication. He was scheduled to get immunotherapy next week at [facility]. He has noted metastatic lesion in his thoracic lumbar and sacral vertebra. Was given IV Keppra and CT head was performed. A head CT showed vasogenic edema associated with multiple brain lesions with distribution and appearance favoring metastatic disease or septic emboli in the appropriate clinical settings over scattered foci of intraparenchymal hemorrhage. Recommend contrast-enhanced MRI or CT for the further evaluation Cervical spine CT showed mild cervical spondylosis with no acute osseous abnormality. Multiple subcentimeter pulmonary nodules in the visualized upper lungs along with right paratracheal lymphadenopathy suspicious for metastatic disease CT brain angiogram showed at least 11 peripheral enhancing lesions scattered throughout the brain consistent with metastatic disease. 2 cm lesion at the anterior frontal lobe but without definitive enhancement coronal for either additional metastatic disease intraparenchymal a combination there of. No aneurysm or hemodynamically significant stenosis. Thoracolumbar CT was also performed which showed bilateral dependent atelectasis/consolidation pulmonary med mediastinal/hilar and axial spine metastatic disease severe burst fracture at T5 with 9 mm posterior retropulsion/tumor extension causing moderate central canal stenosis mild burst fracture at T9 with minimal 2 mm retropulsion of osseous fragments. Upon review of the medical records he recently had MRI thoracic spine done on 02/29/2024 which showed multiple hyperintense enhancing marrow replacing metastatic lesion in thoracic spine with pathologic compression deformity of T5 resulting in [id number] can all stenosis in left ventral cord deformity tumor extends from the left posterior lateral vertebral body an expanded pedicle into the epidural space on series 15, image 21. Additional questionable mild superior endplate pathology compression deformity of T9 without significant. T2 hyperintense enhancing focus involving the left lateral ermias cord at T10-T11 level suspicious for metastatic intramedullary deposit fever given the brain findings demyelination or inflammation/autoimmune/paraneoplastic reaction are differential. Right T10 posterior rib osseous metastasis multiple enhancing soft tissue nodules within the paraspinal musculature suspicious for soft tissue metastatic disease extensive pulmonary metastatic disease better demonstrated on prior PET CT several enlarged enhancing retrocrural lymph nodes. MRI brain 02/29/2024 showed multiple new enhancing intracranial metastatic lesion measured EL with a few leptomeningeal/pial deposits largest lesion is in the right superior temporal gyrus with moderate surrounding vasogenic edema several lesions has been associated susceptibility suspicious for intralesional hemorrhage. Osseous metastatic lesion involving the right mandibular condyle. Small focus of diffusion restriction in the right posterior mass sick [place] muscle belly off uncertain significance significance. No associated enhancement or T2 signal abnormality. Metastasis cannot be excluded. Infarct or ischemia within the muscle is another unusual clinical possibility. Head CT 02/23/2024 showed progression of
--- NOTE | 2024-03-07 17:21 | PM.TDS ---
Transfer Discharge Sum: Prov Provider Date of admission: 03/05/24 08:02 Primary care physician: Narinder Borja MD Admitting clinician: Tanmay López MD Consults: 03/05/24 08:05 Consult to Physician Routine Comment: Consulting Provider: Zuhair Alcantara Reason for consultation: new onset sz with brain mets Has provider been notified: Yes Attending physician on discharge: Tanmay López Discharging clinician: Tanmay López Anticipated date of transfer: 03/07/24 Receiving physician/facility: [facility] DS: Admitting Diagnosis Discharge Date 03/07/2024 Admitting Diagnosis Seizure DS: Discharge Diagnosis Discharge Diagnosis (1) Seizure: Code(s): R56.9 - Unspecified convulsions Status: Acute (2) Metastatic disease: Qualifiers: Area of secondary neoplastic involvement: unspecified site Qualified Code(s): C79.9 - Secondary malignant neoplasm of unspecified site Code(s): C79.9 - Secondary malignant neoplasm of unspecified site Status: Acute Transfer Discharge Sum: Med Medications Active and Home Medications: Home Medications oxycodone 5 mg tablet 10 mg PO Q4H PRN Pain 03/05/24 [History Confirmed 03/05/24] Active Medications Acetaminophen (Acetaminophen 325 Mg Tablet) 650 mg PO Q4H PRN PRN Reason: Mild Pain (1-3) or Fever Bisacodyl (Bisacodyl 10 Mg Suppository) 10 mg RECTAL QAM PRN PRN Reason: Constipation Last Admin: 03/06/24 09:58 Dose: 10 mg Dexamethasone Sodium Phosphate (Dexamethasone Sod Phos Inj 4 Mg/Ml Vial) 4 mg IV PUSH Q6HR MIRIAM Stop: 03/15/24 06:01 Last Admin: 03/07/24 11:56 Dose: 4 mg Hydromorphone HCl (Hydromorphone Hcl Inj (*Crx) 1 Mg/Ml Syr) 0.5 mg IV PUSH Q2H PRN PRN Reason: Pain Rated 7-10 Last Admin: 03/07/24 00:16 Dose: 0.5 mg Levetiracetam (Levetiracetam 250 Mg Tablet) 750 mg PO Q12HR MIRIAM Lorazepam (Lorazepam Inj (*Crx) 2 Mg/Ml Vial) 0.5 mg IV PUSH Q6H PRN PRN Reason: Anxiety Last Admin: 03/07/24 07:02 Dose: 0.5 mg Oxycodone HCl (Oxycodone Hcl (*Crx) 5 Mg Tab Ir) 10 mg PO Q4H PRN PRN Reason: Pain 4-6 Last Admin: 03/07/24 15:47 Dose: 10 mg Pantoprazole Sodium (Pantoprazole Sodium Iv 40 Mg Vial) 40 mg IV PUSH QAM MIRIAM Last Admin: 03/07/24 08:56 Dose: 40 mg Polyethylene Glycol (Polyethylene Glycol 3350 17 Gm Powd.Pack) 17 gm PO QAM PRN PRN Reason: Constipation Last Admin: 03/07/24 08:56 Dose: 17 gm Transfer Discharge Sum: Hosp Hospital Course Hospital course: Davide Gunter is a 58 year old male with metastatic melanoma brought in from home with complaint of having seizures.? Patient stated that he was lying on the couch from a fell off after he had a seizure.? He has no re-collection of the event.? No fever chills not on any anti epileptic medication.? He was scheduled to get immunotherapy next week at [facility].? He has noted metastatic lesion in his thoracic lumbar and sacral vertebra.? He Was started on IV Keppra and CT head was performed.? A head CT showed vasogenic edema associated with multiple brain lesions with distribution and appearance favoring metastatic disease or septic emboli in the appropriate clinical settings over scattered foci of intraparenchymal hemorrhage.? Recommend contrast-enhanced MRI or CT for the further evaluation. Cervical spine CT showed mild cervical spondylosis with no acute osseous abnormality.? Multiple subcentimeter pulmonary nodules in the visualized upper lungs along with right paratracheal lymphadenopathy suspicious for metastatic disease CT brain angiogram showed at least 11 peripheral enhancing lesions scattered throughout the brain consistent with metastatic disease.? 2 cm lesion at the anterior frontal lobe but without definitive enhancement coronal for either additional metastatic disease intraparenchymal a combination there of.? No aneurysm or hemodynamically significant stenosis.? Thoracolumbar CT was also performed which showed b
== END 2024-03-07 18:05 | disposition short-term general hospital (02) | DRG 55 ==
LOC: ANHED 03-05 05:06 → ANHIMU 03-05 08:23 → ANH2MED 03-07 13:58
PROVIDERS: Family Medicine; Admitting Provider Internal Medicine; Emergency Provider Emergency Medicine; PCP Emergency Medicine; Visit Provider Internal Medicine
DX: C79.31 Secondary malignant neoplasm of brain (principal); C79.51 Secondary malignant neoplasm of bone; C34.90 Malignant neoplasm of unspecified part of unspecified bronchus or lung; C79.40 Secondary malignant neoplasm of unspecified part of nervous system; M84.58XA Pathological fracture in neoplastic disease, other specified site, initial encounter for fracture; C43.9 Malignant melanoma of skin, unspecified; R56.9 Unspecified convulsions; M47.812 Spondylosis without myelopathy or radiculopathy, cervical region; M48.04 Spinal stenosis, thoracic region
CPT/HCPCS: 36415; 70450; 70496; 72125; 72128; 72131; 80053; 80307; 83735; 85025; 85610; 93005; 99285; A9270; C9113; J1100; J1170; J1953; J2060; J2405; Q9967